=== PATIENT | female | born 1945 | race Caucasian/White ===

== ENCOUNTER 2019-01-12 00:59 | Emergency (ER) | payer OTHER ==
[2019-01-12 02:53] VITALS: BP 121/75; PULSE 85; TEMP 97.3; BMI 19.9
[2019-01-12] MEDS ORDERED: DIPHTH,PERTUSS(ACELL),TET 0.5 ML DISP.SYRIN IM ONE ×2 (03:45→04:07)
[2019-01-12] MEDS ORDERED: AMOX TR/POT CLAV 875MG/125MG TABLETS (FP) PO ONE (03:45)
[2019-01-12] MEDS ORDERED: IBUPROFEN 400 MG TABLET (FP) PO ONE ×2 (03:45→04:06)
--- NOTE | 2019-01-12 03:58 | PDOC ---
*Physical Exam - Vital Signs Last Vital Signs Temp Pulse Resp BP Pulse Ox 97.3 F L 85 18 121/75 98 01/12/19 01:02 01/12/19 01:02 01/12/19 01:02 01/12/19 01:02 01/12/19 01:02 Medical Decision Making - Medical Decision Making 01/12/19 03:58 Patient seen by the advanced practice provider under my direct supervision. Ancillary testing reviewed as necessary. I agree with plan as outlined by the advanced practice provider. *DC/Admit/Observation/Transfer Diagnosis at time of Disposition: Dog bite - Discharge Dispostion Condition at time of disposition: Fair - Referrals Referrals: Frank Amaral PA [Primary Care Provider] - - Patient Instructions - Post Discharge Activity
[2019-01-12] MEDS ORDERED: AMOX TR/POT CLAV 875MG/125MG TABLETS (FP) ONE (04:06)
--- NOTE | 2019-01-12 04:07 | PDOC ---
History of Present Illness - General Chief Complaint: Bite Stated Complaint: DOG BITE Time Seen by Provider: 01/12/19 03:38 History Source: Patient Exam Limitations: No Limitations Past History - Past Medical History Allergies/Adverse Reactions: Allergies Allergy/AdvReac Type Severity Reaction Status Date / Time No Known Allergies Allergy Verified 01/12/19 02:53 Home Medications: Ambulatory Orders Amoxicillin/Potassium Clav [Augmentin 875-125 Tablet] 1 each PO BID #10 tablet 01/12/19 - Suicide/Smoking/Psychosocial Hx Smoking History: Never smoked Have you smoked in the past 12 months: No Information on smoking cessation initiated: No Hx Alcohol Use: No Drug/Substance Use Hx: No *Physical Exam - Vital Signs Last Vital Signs Temp Pulse Resp BP Pulse Ox 97.3 F L 85 18 121/75 98 01/12/19 01:02 01/12/19 01:02 01/12/19 01:02 01/12/19 01:02 01/12/19 01:02 - Physical Exam General Appearance: No: Apparent Distress Integumentary: positive: Other (Bruise to dorsal surface of R forearm with superficial skin abrasion; superficial puncture wound to dorsal surface of L hand with mild swelling, no erythema) Neurologic: positive: Alert, Normal Mood/Affect Moderate Sedation - Procedure Monitoring Vital Signs: Procedure Monitoring Vital Signs Temperature 97.3 F L 01/12/19 01:02 Pulse Rate 85 01/12/19 01:02 Respiratory Rate 18 01/12/19 01:02 Blood Pressure 121/75 01/12/19 01:02 O2 Sat by Pulse Oximetry (%) 98 01/12/19 01:02 Medical Decision Making - Medical Decision Making 73 y/o F hx of psoriatic arthritis presents s/p getting bit by her dog today. States her dog was injured and when she bent down to pick him up, he was in pain and reacted by biting her along BUE. Is unsure of last tetanus. Patient's dog is UTD on rabies. Plan: Motrin, Tdap, Augmentin Wanted to refer to hand clinic for follow-up but patient states she lives in [place] and does not want to f/u here 01/12/19 04:04 *DC/Admit/Observation/Transfer Diagnosis at time of Disposition: Dog bite Qualifiers: Encounter type: initial encounter Qualified Code(s): W54.0XXA - Bitten by dog, initial encounter - Discharge Dispostion Disposition: HOME Condition at time of disposition: Stable Decision to Admit order: No - Prescriptions Prescriptions: Amoxicillin/Potassium Clav [Augmentin 875-125 Tablet] 1 each PO BID #10 tablet - Referrals Referrals: Frank Amaral PA [Primary Care Provider] - 24 hours - Patient Instructions Printed Discharge Instructions: DI for Animal Bites Additional Instructions: Thank you for choosing [facility]. It was a pleasure taking care of you. You may take Motrin 600 mg every 6 hours by mouth as needed for mild to moderate pain. Take Motrin with food. Apply cold compresses to area of swelling Take Augmentin as directed Recommend having wound rechecked in 24 hours Also recommend follow-up with hand specialist Return to the Emergency Department if your symptoms worsen or persist, have fever, increased swelling, redness, streaking, pustular discharge or other concerning symptoms. - Post Discharge Activity
== END 2019-01-12 04:36 | disposition home or self-care (01) ==
LOC: JER 00:59
PROC: 3E0234Z Introduction of Serum, Toxoid and Vaccine into Muscle, Percutaneous Approach (ICD-10-PCS; principal; 2019-01-12)
DX: S40.871A Other superficial bite of right upper arm, initial encounter (principal); W54.0XXA Bitten by dog, initial encounter; Y93.89 Activity, other specified; Y92.89 Other specified places as the place of occurrence of the external cause
CPT/HCPCS: 90471; 90715; 99281-25